=== PATIENT | male | born 1955 | race Two or more races ===

== ENCOUNTER 2022-10-24 16:48 | Emergency (ER) | payer OTHER ==
[~2022-10-24] VITALS: Ht 180.3 cm; Wt 95.3 kg
[~2022-10-24 16:48] MED LIST: AVALIDE 150/12.1 TAB; AVAPRO150 MG; GLIMEPIRIDE4 MG; METFORMIN HCL500 MG; TRICOR48 MG
[2022-10-24] MEDS ORDERED: GLIMEPIRIDE4 MG (17:55)
[2022-10-24] MEDS ORDERED: CRESTOR10 MG (17:55)
[2022-10-24] MEDS ORDERED: LANTUS SOL100 UNIT/1 (17:56)
[2022-10-24] MEDS ORDERED: HYDROCHLOROTHIA25 MG (17:57)
[2022-10-24] MEDS ORDERED: ECOTRIN81 MG (17:57)
[2022-10-24] MEDS ORDERED: AMLODIPINE-OLM1 EAC2 (17:57)
[2022-10-24] MEDS ORDERED: TELMISARTAN80 MG (17:58)
[2022-10-24] MEDS ORDERED: ANALPRAM HC 2.530 GM RECTAL (19:07)
== END 2022-10-24 19:18 | disposition home or self-care (01) ==
LOC: ER 16:48
DX: K64.8 Other hemorrhoids (principal); E11.9 Type 2 diabetes mellitus without complications; Z79.4 Long term (current) use of insulin; I10 Essential (primary) hypertension